=== PATIENT | female | born 1935 | race Caucasian/White ===

== ENCOUNTER 2020-03-19 12:24 | Emergency (ER) | payer MEDICARE ==
[~2020-03-19] VITALS: Ht 160 cm; Wt 63.5 kg
--- NOTE | 2020-03-19 13:08 | Emergency Department Note ---
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 was doing well prior to this Historian: Patient Arrival Mode: Car History limited by: condition of the patient (normal) Wool Carder Required: No Onset (how long ago): hour(s) (12) Location: see above Quality: sharp Radiation: Reports non-radiation Severity: moderate Onset quality: sudden Duration (how long): hour(s) (12) Timing of current episode: constant Progression: unchanged Chronicity: new Context: Reports trauma/injury; Denies recent illness, Denies recent surgery, Denies recent immobilization, Denies recent travel, Denies new medications, Denies hx of DVT/PE, Denies non- compliance w/ medications Relieving factors: none Exacerbating factors: movement Associated symptoms: Reports denies other symptoms Treatments prior to arrival: none Past Medical/Family History Physician Review I have reviewed the patient's past medical and family history. Any updates have been documented here. Past Medical History Recent Fever: No Clinical Suspicion of Infectio: No New/Unexplained Change in Ment: No Past Medical History: None Past Surgical History: None Social History Smoking Cessation: Never Smoker Counseling Performed: No Any Illegal Drug Use: No TB Exposure/Symptoms: No Physically hurt or threatened: No Family History Family history of heart diseas: No Other Any Pre-Existing Lines (PICC,: No Is patient up to date on immun: No Review of Systems Review of Systems Constitutional: Reports no symptoms EENTM: Reports no symptoms Cardiovascular: Reports no symptoms Respiratory: Reports no symptoms Gastrointestinal: Reports no symptoms Genitourinary: Reports no symptoms Musculoskeletal: Reports as per HPI Integumentary: Reports no symptoms Neurological: Reports as per HPI Psychological: Reports no symptoms Endocrine: Reports no symptoms Hematological/Lymphatic: Reports no symptoms Review of other systems: All other systems negative Physical Exam Related Data Allergies: Coded Allergies: erythromycin base (Verified Allergy, Unknown, 03/19/20) latex (Verified Allergy, Unknown, 03/19/20) Vital signs reviewed: Yes Physical Exam CONSTITUTIONAL Constitutional: Present well-developed, Present well-nourished HENT HENT: Present normocephalic, Present oropharynx clear/moist, Present nose normal, Present other (rgt head tenderness/eccymosis) HENT L/R: Present left ext ear normal, Present right ext ear normal EYES Eyes: Reports PERRL, Reports conjunctivae normal NECK Neck: Present ROM normal, Present supple PULMONARY Pulmonary: Present effort normal, Present breath sounds normal CARDIOVASCULAR Cardiovascular: Present regular rhythm, Present heart sounds normal, Present capillary refill normal, Present normal rate GASTROINTESTINAL Abdominal: Present soft, Present nontender, Present bowel sounds normal GENITOURINARY Genitourinary: Present exam deferred SKIN Skin: Present warm, Present dry MUSCULOSKELETAL Musculoskeletal: Present ROM normal, Present tenderness (left knee/ mild c spine tenderness) NEUROLOGICAL Neurological: Present alert, Present oriented x 3, Present no gross motor or sensory deficits PSYCHOLOGICAL Psychological: Present mood/affect normal, Present judgement normal Results Imaging Imaging results reviewed: Yes Impressions [place] [address] Patient Name: KIANNA ARCE MR #: [id number] : 1935 Age/Sex: 84/F Req #: [id number] Adm Physician: Ordered by: ALINA CLEMENS Report #: [id number] Location: [facility] Room/Bed: Procedure: [id number] HOPD/CT BRAIN WO-HOPD Exam Date: 03/19/20 Exam Time: 1356 REPORT STATUS: Signed CT BRAIN WO-HOPD HISTORY: Fall COMPARISON: None. Technique: Noncontrast axial scans were obtained from skull base to the vertex. Coronal and sagittal reconstructions obtained from the axial data. One or more of the following dose reduction techniques were used: Automated exposure control, adjustment of the mA and/or kV according to patient size, and/or utilization of iterative reconstruction technique. DISCUSSION: Scalp/Skull: Small right frontal scalp hematoma. No calvarial fracture. Brain sulci: Mildly prominent. Ventricles: Compensatory dilatation. Extra-axial spaces: No masses or fluid collections. Carotid siphon calcifications are present. Parenchyma: Moderate bilateral deep white matter hypodensity is likely chronic microvascular ischemic change. Otherwise, no masses, hemorrhage, or large vascular territory acute infarct. Dural sinuses: No abnormal densities. Sellar/Suprasellar region: Intact. Skull base: Intact. Incidental findings: Bilateral ocular lens replacement. IMPRESSION: 1. No acute intracranial abnormalities. 2. Moderate supratentorial chronic microvascular ischemic change. Generalized cerebral volume loss. Signed by: Dr. Osmany Hood M.D. on 03/19/2020 1:53 PM Dictated By: OSMANY HOOD MD 135 Transcribed By: MEHDI on 03/19/20 1353 COPY TO: ALINA CLEMENS~ [place] [address] Patient Name: KIANNA ARCE MR #: [id number] : 1935 Age/Sex: 84/F Req #: [id number] Adm Physician: Ordered by: ALINA CLEMENS Report #: [id number] Location: [facility] Room/Bed: Procedure: [id number] HOPD/CT C-SPINE W/O - HOPD Exam Date: 03/19/20 Exam Time: 1356 REPORT STATUS: Signed CT C-SPINE W/O - HOPD HISTORY: Fall COMPARISON: None. TECHNIQUE: CT of the cervical spine without contrast. Sagittal and coronal reformations were created. One or more of the following dose reduction techniques were used: Automated exposure control, adjustment of the mA and/or kV according to patient size, and/or utilization of iterative reconstruction technique. FINDINGS: Cervical lordosis is straightened. There is no significant scoliosis. Mild bone demineralization limits evaluation. No definite acute fracture or compression deformity is seen. The craniocervical junction is intact. No gross spinal canal masses are seen. The paravertebral and paraspinal soft tissues are unremarkable. Degenerative changes: Multilevel advanced spondylosis and bilateral facet arthrosis are present. There is associated minimal grade 1 anterolisthesis of C3 on C4, C4 on C5, and C7 on T1. Multilevel bilateral moderate to severe foraminal stenoses due to uncovertebral and facet arthrosis are present. There is at least mild canal stenosis from C4-C5 to C6-C7 due to posterior disc osteophyte complexes. Incidental findings: The left thyroid lobe is either atrophic or absent. Mild to moderate bilateral carotid bulb calcified plaque is present. IMPRESSION: 1. No acute osseous abnormalities. 2. Degenerative changes as described above. Signed by: Dr. Osmany Hood M.D. on 03/19/2020 2:23 PM Dictated By: OSMANY HOOD MD 22 Transcribed By: MEHDI on 03/19/20 142 COPY TO: ALINA CLEMENS~ [place] [address] Patient Name: KIANNA ARCE MR #: [id number] : 1935 Age/Sex: 84/F Req #: [id number] Adm Physician: Ordered by: ALINA CLEMENS Report #: [id number] Location: [facility] Room/Bed: Procedure: [id number] HOPD/KNEE 3VW LT - HOPD Exam Date: 03/19/20 Exam Time: 1400 REPORT STATUS: Signed Radiographs of the left knee - 3 views HISTORY: Pain COMPARISON: None available. FINDINGS: Bones: No acute displaced fracture. Osseous alignment is within normal limits. Joints: Moderate tricompartmental degenerative arthrosis. No osseous erosion. Small bone spur at the superior patella. Soft tissues: Soft tissue swelling. IMPRESSION: Moderate tricompartmental degenerative arthrosis. No osseous erosion. Soft tissue swelling. Signed by: Dr. Truong Cortes M.D. on 03/19/2020 2:11 PM Dictated By: TRUONG CORTES MD, MD 10 Transcribed By: MEHDI on 03/19/201410 COPY TO: ALINA CLEMENS~ Assessment & Plan Medical Decision Making MDM see below Assessment & Plan Final Impression: (1) Multiple contusions (2) Arthritis of left knee Depart Disposition: HOME, SELF-prison Meds Active Scripts Ibuprofen (IBUPROFEN) 600 Mg Tablet, 600 MG PO Q6H PRN for MODERATE PAIN (4-6), #30 TAB Prov:ALINA CLEMENS 03/19/20 ALINA CLEMENS Mar 19, 2020 13:08
--- NOTE | 2020-03-19 13:56 | Diagnostic Imaging Report ---
CT BRAIN [facility] HISTORY: Fall COMPARISON: None. Technique: Noncontrast axial scans were obtained from skull base to the vertex. Coronal and sagittal reconstructions obtained from the axial data. One or more of the following dose reduction techniques were used: Automated exposure control, adjustment of the mA and/or kV according to patient size, and/or utilization of iterative reconstruction technique. DISCUSSION: Scalp/Skull: Small right frontal scalp hematoma. No calvarial fracture. Brain sulci: Mildly prominent. Ventricles: Compensatory dilatation. Extra-axial spaces: No masses or fluid collections. Carotid siphon calcifications are present. Parenchyma: Moderate bilateral deep white matter hypodensity is likely chronic microvascular ischemic change. Otherwise, no masses, hemorrhage, or large vascular territory acute infarct. Dural sinuses: No abnormal densities. Sellar/Suprasellar region: Intact. Skull base: Intact. Incidental findings: Bilateral ocular lens replacement. IMPRESSION: 1. No acute intracranial abnormalities. 2. Moderate supratentorial chronic microvascular ischemic change. Generalized cerebral volume loss. Signed by: Dr. Osmany Hood M.D. on 03/19/2020 1:53 PM
--- OUTSIDE RECORDS SUMMARY | 2020-03-19 14:10 | XMS REPORT | Clinical Summary ---
Author Author YANE [facility] Organization [facility] Address Unknown Phone Unavailable Care Team Providers Care Tax Accounting Assistant Name Role Phone Agapito Nielson MD PCP Allergies Comments Active Allergy Reactions Severity Noted Date Black Pepper Rash Low 12/06/2012 Carrot Rash Low 12/06/2012 Cefprozil Rash Low 01/28/2013 headache Codeine Nausea And Medium 12/06/2012 Vomiting, Other (See Comments) Erythromycin Rash Low 12/06/2012 Tape Adherent Rash Low 12/06/2012 Never had but contraindicated for migraines Tramadol Other (See Low 12/06/2012 Comments) Medications End Date Status Medication Sig Dispensed Refills Start Date Active metoprolol (LOPRESSOR) Take 100 mg 0 100 MG tablet by mouth 2 (two) times daily. Active ZOLMitriptan (ZOMIG) 5 MG Take 5 mg by 0 tablet mouth as needed. Active multivitamin with Take 1 tablet 0 minerals tablet by mouth daily. Active ibuprofen (ADVIL,MOTRIN) Take 200 mg 0 200 MG tablet by mouth every 6 (six) hours as needed. Active HYDROcodone-acetaminophen Take 1 tablet 0 (NORCO 7.5-325) 7.5-325 by mouth mg per tablet every 6 (six) hours as needed. Active erenumab-aooe (AIMOVIG Inject 0 AUTOINJECTOR SUBQ) subcutaneousl y. Active aspirin/caffeine (ANACIN Take by mouth 0 ORAL) daily . Active donepezil (ARICEPT) 10 MG Take 20 mg by 0 tablet mouth nightly. Active venlafaxine (EFFEXOR-XR) Take 150 mg 0 150 MG 24 hr capsule by mouth daily. Active albuterol (ACCUNEB) 1.25 Take 1 ampule 0 mg/3 mL nebulizer by solution nebulization every 6 (six) hours as needed for Wheezing. Active benzonatate (TESSALON) Take 200 mg 0 100 MG capsule by mouth 3 (three) times daily as needed for Cough. Active fenofibrate (TRICOR) 48 Take 48 mg by 0 MG tablet mouth daily. Active amLODIPine (NORVASC) 2.5 Take 2.5 mg 0 MG tablet by mouth daily. Active sucralfate (CARAFATE) 1 Take 1 g by 0 gram tablet mouth 2 (two) times daily . Active omeprazole (PRILOSEC) 40 Take 40 mg by 0 MG capsule mouth daily. Active rosuvastatin (CRESTOR) 10 Take 10 mg by 0 MG tablet mouth daily. Active levothyroxine (SYNTHROID, Take 25 mcg 0 LEVOTHROID) 25 MCG tablet by mouth Every morning on an empty stomach. Active linagliptin (TRADJENTA Take by 0 ORAL) mouth. Active docusate sodium (COLACE) Take 100 mg 0 100 MG capsule by mouth 2 (two) times daily. Active mirabegron (MYRBETRIQ) 50 Take by mouth 0 mg Tb24 ER tablet daily. Active cholecalciferol (VITAMIN Take 1,000 0 D3) 1,000 unit (25 mcg) Units by tablet mouth daily. Active Missing or Non-Formulary 0 Medication 04/07/2019 acetaminophen-codeine Take 1 tablet 15 tablet 0 (TYLENOL-CODEINE #3) by mouth 9 300-30 mg per tablet every 6 (six) hours as needed for Pain for up to 10 days. Max Daily Amount: 4 tablets 04/23/2019 acetaminophen-codeine Take 1 tablet 30 tablet 0 (TYLENOL-CODEINE #3) by mouth 9 300-30 mg per tablet every 4 (four) hours as needed for Pain for up to 10 days. Max Daily Amount: 6 tablets Active Problems Problem Noted Date History of right breast cancer 04/13/2019 Breast cancer 03/28/2019 Right arm pain 01/19/2013 Rotator cuff tear, right 12/08/2012 Encounters Care Team Description Date Type Specialty Nida Galindo MD LUMPECTOMY 04/13/2019 Surgery Kobi Martinez MD 04/13/2019 Anesthesia Event Nida Galindo MD 04/13/2019 Hospital Encounter Nida Galindo MD 04/10/2019 Hospital Pre-Admission Testi ng Encounter Simon Beata MariaJAMES 03/28/2019 Anesthesia Event Nida Galindo MD LUMPECTOMY 03/28/2019 Surgery Nida Galindo MD 03/28/2019 Hospital Encounter Nida Galindo MD 03/24/2019 Hospital Pre-Admission Testi ng Encounter after 03/19/2019 Family History Medical History Relation Name Comments Cancer Other Coronary artery disease Other Breast cancer Other Migraines Other Relation Name Status Comments Other Other Other Other Social History Date Tobacco Use Types Packs/Day Years Used Never Smoker Smokeless Tobacco: Never Used Alcohol Use Drinks/Week oz/Week Comments No Sex Assigned at Date Recorded Not on file Industry Job Start Date Occupation Not on file Not on file Not on file Travel End Travel History Travel Start No recent travel history available. Last Filed Vital Signs Time Taken Vital Sign Reading 04/13/2019 1:03 PM CDT Blood Pressure 133/66 04/13/2019 1:03 PM CDT Pulse 80 04/13/2019 1:03 PM CDT Temperature 36.6 C (97.8 F) 04/13/2019 1:03 PM CDT Respiratory Rate 16 04/13/2019 1:03 PM CDT Oxygen Saturation 98% - Inhaled Oxygen - Concentration 04/13/2019 9:00 AM CDT Weight 64.2 kg (141 lb 8.6 oz) 04/13/2019 9:00 AM CDT Height 160 cm (5' 3") 04/13/2019 9:00 AM CDT Body Mass Index 25.07 Plan of Treatment Health Maintenance Due Date Last Done Comments MEDICARE ANNUAL WELLNESS 2002 (YEAR 2 or FIRST YEAR if no IPPE) PNEUMOCOCCAL 65+ 03/24/2019 03/24/2018 LOW/MEDIUM RISK (2 of 2 - PPSV23) INFLUENZA VACCINE (#1) 2020 03/24/2018, Implants Device Identifier Shelf Expiration Date Model / Serial / L ot Implanted Type Area Manufactur er 12/02/2014 [id number] / / [id number] Jasper,[employer] Corkscrew Ft Jasper/Art ARTHR EX 5.5x15mm W/3 #2 Fibewire - [id number] hroscopy Implanted: Qty: 2 on 12/13/2012 by Frank Hunt MD 12/01/2014 [id number] / / [id number] Jasper,[employer]ocom[employer] Swivelock C Jasper/Art Right: Shoulde r ARTHREX 4.75x19.1mm W/Closed Eyelet - hroscopy [id number] Implanted: Qty: 2 on 12/13/2012 by Frank Hunt MD Procedures Comments Procedure Name Priority Date/Time Associated Diag nosis RHYTHM STRIP - SCAN 04/14/2019 2:41 PM CDT POCT-GLUCOSE METER Routine 04/13/2019 12:11 PM CDT TISSUE EXAM AP Routine 04/13/2019 11:00 AM CDT LUMPECTOMY 04/13/2019 Malignant neoplasm of 10:30 AM CDT right female breast, unspecified estrogen receptor status, unspecified site of breast (HCC) Case Notes 60 MINS PER KALENE PLATELET COUNT Routine 04/10/2019 3:44 PM CDT INTRAOPERATIVE PATH 03/31/2019 REPORT - SCAN 2:35 PM CDT TISSUE EXAM AP Routine 03/28/2019 11:17 AM CDT NM SENTINEL NODE STUDY Routine 03/28/2019 (INJECTION ONLY) 10:10 AM CDT BIOPSY/EXCISION,SENTINEL 03/28/2019 Malignant ne oplasm of LYMPH NODE 10:00 AM CDT right female breast , unspecified estrogen receptor status, unspecified site of breast (HCC) Case Notes 2 HRS PER KALENE Special Needs (NEEDLE LOC SCHEDULED 03/28/19 BY [facility] [employer] [facility] FOR 7:30 )(CNWE) LUMPECTOMY 03/28/2019 Malignant neoplasm of 10:00 AM CDT right female breast, unspecified estrogen receptor status, unspecified site of breast (HCC) Case Notes 2 HRS PER KALENE Special Needs (NEEDLE LOC SCHEDULED 03/28/19 BY [facility] FOR 7:30 )(CNWE) POCT-GLUCOSE METER Routine 03/28/2019 9:07 AM CDT US PATHOLOGY LOCALIZATION Routine 03/28/2019 RIGHT BREAST 8:49 AM CDT HEMOGLOBIN Routine 03/24/2019 2:01 PM CDT BUN AND CREATININE Routine 03/24/2019 W/RATIO 2:01 PM CDT ELECTROLYTE PANEL Routine 03/24/2019 2:01 PM CDT GLUCOSE Routine 03/24/2019 2:01 PM CDT after 03/19/2019 Results * RHYTHM STRIP - SCAN (04/14/2019 2:41 PM CDT) Narrative Performed At This result has an attachment that is n ot available. * POC-Glucose meter (04/13/2019 12:11 PM CDT) Only the most recent of 2 results within the time period is included. POC-Glucose Meter 141 (H)Comment: TESTED AT 70 - 110 mg/dL C [facility] [address] [facility] [id number] Specimen Blood Performing Organization Address City/State/Zipcode Ph one Number [address] [facility]ENTER * Tissue Exam (04/13/2019 11:00 AM CDT) Only the most recent of 2 results within the time period is included. Case Report Surgical Pathology [facility] TH Report [facility] Case: [id number] Authorizing Provider:Nida Galindo MD Collected: 04/13/2019 1100 Ordering Location: [facility] PERIOPERATIVE Received: 04/13/2019 1117 SERVICES Pathologist: Sissy Fuchs MD Specimens: A) - Soft Tissue, Other, right breast skin over lumpectomy bed stitch stanley superficial margin B) - Soft Tissue, Other, right breast lateral margin stitch stanley true margin DIAGNOSIS A. SKIN, RIGHT BREAST, [facility] EXCISION [facility] - SKIN WITH REACTIVE CHANGES - NEGATIVE FOR CARCINOMA B. BREAST, RIGHT NEW LATERAL MARGIN, EXCISION - FIBROFATTY TISSUE WITH SURGICAL SITE CHANGES - NEGATIVE FOR CARCINOMA Signing Pathologist Direct Phone Line: [phone] CPT Code(s) A. 86794 X 1 [facility] [place] H B. [address] X 1 [facility] CLINICAL HISTORY Malignant neoplasm of the [facility] right female breast [facility] SPECIMEN SOURCE A. Soft tissue, right breast [facility] skin over lumpectomy bed [facility] stitch stanley superficial margin; B. Soft tissue, right breast lateral margin stitch stanley true margin GROSS DESCRIPTION The specimen is received in [facility] two parts each labeled with [facility] the patient's name, Giselle Schmitt, accession number [id number]. Part A additionally labeled "right breast skin over lumpectomy bed stitch stanley superficial margin" consists of an ellipse of skin measuring 3 cm in length and 0.2 cm in diameter and depth is also 0.2 cm. The resection margin is inked blue and the entire specimen is submitted in one cassette labeled A1. Part B additionally labeled "right breast lateral margin stitch stanley true margin" consists of a fibroadipose tissue measuring 3 x 2 x 1 cm. Stitch stanley area inked blue and opposite to stitch lexie is inked black. The specimen is serially sectioned and entirely submitted in B1-B3. SS/pl MICROSCOPIC DESCRIPTION A-B. Performed. [facility] Professional component [facility] was performed at Center, Department of [facility] TER Pathology, [address] [place] [address], [place] [address], Specimen Tissue Tissue - Soft tissue (navigational concept) Performing Organization Address City/[facility] Ph one Number [address] [facility] * Platelet count (04/10/2019 3:44 PM CDT) Platelets 336 150 - 450 K/CU MM [facility] Specimen Blood Performing Organization Address [facility] Ph one Number [address] [facility] * INTRAOPERATIVE PATH REPORT - SCAN (03/31/2019 2:35 PM CDT) Narrative Performed At This result has an attachment that is n ot available. * NM sentinel node study (injection only) (03/28/2019 10:10 AM CDT) Specimen Narrative Performed At FINAL REPORT [employer] PROCEDURE: SENTINEL NODE LOCALI ZATION - NON IMAGING INDICATION: Right breast ca ncer PROTOCOL: A total of 1.2 mC i of Tc-99m tilmanocept was injected in the right breast by the nuclear medi cine technologist.One aliquot was injected subcutaneously in the subareolar area, and one aliquot was injected intradermally at t he 9 o'clock position. IMPRESSION: Radiopharmaceutical injection for intraoperative sentinel node localization. Signed: Joon Macias MD Report Verified Date/Time: 9 10:44:51 Reading Location: [address] Reading Room Procedure Note Interface, External Ris In - 03/28/2019 10:47 AM CDT FINAL REPORT PROCEDURE: SENTINEL NODE LOCALIZATION - NON IMAGING INDICATION: Right breast cancer PROTOCOL: A total of 1.2 mCi of Tc-99m tilmanocept was injected in the right breast by the nuclear process engineer. One aliquot was injected subcutaneously in the subareolar area, and one aliquot was injected intradermally at the 9 o'clock position. IMPRESSION: Radiopharmaceutical injection for intraoperative sentinel node localization. Signed: Joon Macias MD Report Verified Date/Time: 03/28/2019 10:44:51 Reading Location: [address] Med Reading Room Performing Organization Address City/State/Zipcode Ph one Number [email or web address] RIS * US pathology localization right breast (03/28/2019 8:49 AM CDT) Specimen Narrative Performed At [email or web address] RIS #[id number] - MM, U/S, BREAST, PATHOLOGY, LOCAL, RIGHT WIRE LOCALIZATION RIGHT BREAST WITH POS T DIGITAL MAMMOGRAPHIC IMAGIN03/28/2019 PATIENT CONSENT: The procedure, risks a nd benefits, alternatives were discussed with the patient. Informed co nsent was obtained. A time-out was performed. Comparison is made to the mammogram boyd ed 02/24/2019 and ultrasound dated 03/02/2019. A wire localization was performed for t he mass located in the right breast at 9 o'clock posterior depth. This was described on the previous mammography and ultrasound rep orts.The skin was prepped in the usual manner.The localization w as approached from the medial aspect.A wire was inserted into the targeted area.Post placement digital mammographic imaging demonstrat es the tip traverses the mass. IMPRESSION: WIRE LOCALIZATION Wire localization for the mass in the r ight breast at 9 o'clock posterior depth was successful with no apparent post procedure complications.Waiting for pathology results.A final report will be issued when these become available. The procedure was reviewed by a staff namita zuniga. Ayse gagnon M.D. [facility]/:03/28/2019 08:59:09 Director Database: Mini joseph Active Directory Engineer, [facility] [address] Procedure Note Interface, External Ris In - 03/28/2019 2:44 PM CDT #[id number] - MM, U/S, BREAST, PATHOLOGY, LOCAL, RIGHT WIRE LOCALIZATION RIGHT BREAST WITH POST DIGITAL MAMMOGRAPHIC IMAGIN03/28/2019 PATIENT CONSENT: The procedure, risks and benefits, alternatives were discussed with the patient. Informed consent was obtained. A time-out was performed. Comparison is made to the mammogram dated 02/24/2019 and ultrasound dated 03/02/2019. A wire localization was performed for the mass located in the right breast at 9 o'clock posterior depth. This was described on the previous mammography and ultrasound reports. The skin was prepped in the usual manner. The localization was approached from the medial aspect. A wire was inserted into the targeted area. Post placement digital mammographic imaging demonstrates the tip traverses the mass. IMPRESSION: WIRE LOCALIZATION Wire localization for the mass in the right breast at 9 o'clock posterior depth was successful with no apparent post procedure complications. Waiting for pathology results. A final report will be issued when these become available. The procedure was reviewed by a staff physician. Ayse Stafofrd M.D. [facility]/:03/28/2019 08:59:09 Director Database: Mini Batista Active Directory Engineer, [facility] [id number] Performing Organization Address [facility] one Number [employer] RIS * BUN and Creatinine (03/24/2019 2:01 PM CDT) BUN 27 (H) 7 - 21 mg/dL [facility] Creatinine 1.68 (H) 0.57 - 1.25 mg/dL [facility] EGFR 29Comment: ESTIMATED GFR IS mL/min/1.[address] [facility] NOT ACCURATE CREATININE [facility] CLEARANCE IN PREDICTING GLOMERULAR FILTRATION RATE. ESTIMATED GFR IS NOT APPLICABLE FOR DIALYSIS PATIENTS. Specimen Blood Performing Organization Address [facility] one Number [address] [facility] * Hemoglobin (03/24/2019 2:01 PM CDT) Hemoglobin 14.7 11.2 - 15.7 GM/DL [facility] Specimen Blood Performing Organization Address [facility] one Number [address] [facility] * Glucose (03/24/2019 2:01 PM CDT) Glucose 154 (H) 70 - 105 mg/dL [facility] Specimen Blood Performing Organization Address [facility] one Number [address] [facility] * Electrolytes (03/24/2019 2:01 PM CDT) Sodium 140 136 - 145 meq/L [facility] Potassium 4.5 3.5 - 5.1 meq/L [facility] Chloride 103 98 - 107 meq/L [facility] CO2 25 22 - 29 meq/L [facility] Specimen Blood Performing Organization Address City/State/Zipcode Ph one Number [facility] [address] [place], [place] [address] [facility] after 03/19/2019 Insurance Payer Benefit Subscriber ID Type Phone Address Plan / Group MEDICARE MEDICARE A xxxxxxxxxxx Medicare B MCR SUPPLEMENT/INDIVIDUAL AARP/UNITE xxxxxxxxxxx Medi gap D HEALTHCARE Advance Directives Patient has advance care planning documents, and code status on file. For more i nformation, please contact: [address] [phone] Date Inactivated Comments Code Status Date Activated 04/13/2019 4:30 PM Full Code 04/13/2019 8:36 AM This code status was determined by: Patient 03/28/2019 4:03 PM Full Code 03/28/2019 8:59 AM This code status was determined by: Patient 02/14/2013 4:38 PM All possible means of suppor t, including: cardiac massage, mechanical ventilation, and defibrillation will be used to support life. Code ONE 02/14/2013 12:03 PM 01/19/2013 2:23 PM All possible means of suppor t, including: cardiac massage, mechanical ventilation, and defibrillation will be used to support life. Code ONE 01/19/2013 12:33 AM 12/14/2012 5:38 PM All possible means of suppor t, including: cardiac massage, mechanical ventilation, and defibrillation will be used to support life. Code ONE 12/13/2012 11:11 AM
--- OUTSIDE RECORDS SUMMARY | 2020-03-19 14:10 | XMS REPORT | Clinical Summary ---
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) PVR volume 0ml Specimen Urine after 03/19/2019 Insurance Type Payer Benefit Subscriber ID Effective Phone Address Plan / Dates Group Medicare MEDICARE MEDICARE xxxxxxxxxxx [id number] [place], PART A AND resent [place] B Commercial AARP AARP xxxxxxxxxxx [id number] SUPPLEMENT resent Advance Directives For more information, please contact: [phone] Patient Director Trade Explanation Type Date Recorded Advance Directives, 02/21/2016 11:14 AM Living Will and Medical Power of Guzzler Builder Advance Directives, 12/28/2017 9:00 AM Living Will and Medical Power of Guzzler Builder Power of Guzzler Builder Advance Directives, 03/16/2019 12:00 AM Living Will and Medical Power of Guzzler Builder Date Inactivated Comments Code Status Date Activated 01/15/2017 3:28 PM Full Code 01/13/2017 6:22 PM Code Status decision reached by: Patient 12/16/2015 8:52 PM Full Code 12/11/2015 12:03 AM Code Status decision reached by: Patient
--- OUTSIDE RECORDS SUMMARY | 2020-03-19 14:10 | XMS REPORT | Continuity of Care Document ---
Author Author [employer]ATY[employer]isy CASTILLOCHACEANNETTE Espino [employer] Address Unknown Phone Unavailable Care Team Providers Care Pasta Maker Name Role Phone 8 Securities Information Exchange Unavailable Un available Problems No Data Provided for This Section Medications Medication Details Route Status Patient Instructions Ordering Provider Order Date Source ZOLMitriptan 5 MG Oral Tablet ; Start Date: 01/27/2013; End Date: (Active) Active 01/27/2013 [facility] Metoprolol Tartrate 50 MG Oral Tablet ; Start Date: 01/27/2013 (Active) Active 01/27/2013 [facility] Allergies, Adverse Reactions, Alerts Substance Category Reaction Severity Reaction type Status Date Reported Comments Source Codeine Derivatives drug aller gy drug aller gy Active [facility] Erythromycin Base CPEP drug al lergy drug aller gy Active [facility] Cefprozil SUSR drug allergy drug allergy Active [facility] Tramadol drug allergy drug allergy Active [facility] Immunizations No Data Provided for This Section Results No Data Provided for This Section Pathology Reports No Data Provided for This Section Diagnostic Reports No Data Provided for This Section Consultation Notes No Data Provided for This Section Discharge Summaries No Data Provided for This Section History and Physicals No Data Provided for This Section Vital Signs No Data Provided for This Section Encounters Location Location Details Encounter Type Encounter Number Reason For Visit Attending Provider ADM Date DC Date Status Source AUDIT [id number] 01/29/2013 01/29/2013 [facility] AUDIT [id number] 07/03/2013 07/03/2013 [facility] AUDIT [id number] 10/17/2013 10/17/2013 [facility] Procedures No Data Provided for This Section Assessment and Plan No Data Provided for This Section Plan of Care No Data Provided for This Section Social History Social History Date Source Never A Smoker (Active) Never Drank Alcohol (Active) 10/17/2013 [facility] Family History No Data Provided for This Section Advance Directives Order Name Results Value Date Source Advance Directives Advance Dir ectives No Advance Directives available. 10/17/2013 [facility] Advance Directives Advance Dir ectives No Advance Directives available. 07/03/2013 [facility] Advance Directives Advance Dir ectives No Advance Directives available. 01/29/2013 [facility] Functional Status No Data Provided for This Section
--- OUTSIDE RECORDS SUMMARY | 2020-03-19 14:11 | XMS REPORT | Continuity of Care Document ---
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 13:29:00 Test Item Glucose (test code = 2345-7) 249 mg/dL 65-99 H Fasting reference interval For someone without known diabetes, a glucosevalue >125 mg/dL indicates that they may havediabetes and this should be confirmed with afollow-up test. BUN (test code = 3094-0) 16 mg/dL 7-25 Creatinine (test code = 2160-0) 0.90 mg/dL 0.6-0.88 H For patients >49 years of age, the reference limitfor Creatinine is approximately 13% higher for peopleidentified as -Kyrgyz. EGFR Non-Afr. Kyrgyz (test code = 2775) 59 > OR = 60 mL /min/1.73m2 L EGFR (test code = 02222-0) 69 > OR = 60 mL/min/1.73m2 BUN/creatinine ratio (test code = 3097-3) 18 6- 22 (calc) Sodium (test code = 2951-2) 134 mmol/L 135-146 L Potassium (test code = 2823-3) 3.7 mmol/L 3.5-5.3 Chloride (test code = 2075-0) 97 mmol/L 98-110 L CO2 (test code = 2027-9) 24 mmol/L 20-32 Calcium (test code = 84549-1) 9.7 mg/dL 8.6-10.4 Protein (test code = 2885-2) 7.0 g/dL 6.1-8.1 Albumin, S (test code = 1751-7) 4.3 g/dL 3.6-5.1 Globulin, total (test code = 18209-9) 2.7 1.9- 3.7 g/dL (c alc) Albumin/globulin ratio (test code = 1759-0) 1.6 1.0- 2.5 ( calc) Total bilirubin (test code = 1975-2) 0.6 mg/dL 0.2-1.2 Alkaline phosphatase (test code = 6768-6) 56 U/L 37-153 AST (test code = 1920-8) 24 U/L 10-35 ALT (test code = 1742-6) 23 U/L 6-29 GERARD (test code = GERARD) FASTING:YESFASTING: YES RAC (test code = RAC) Performing Organization Info rmation: Site ID: RGA Name: [facility] Lab Address: [address] [place] [phone] Director: Geovanni Morley Lab Interpretation (test code = 30771-7) [facility] [id number] 13:29:00* Test Item Value Reference Range Interpretation Comments Hemoglobin A1C (test code = 4548-4) 10.4 <5.7 % of total Hg b H For someone without known diabetes, a hemoglobin J6mlfelg of 6.5% or greater indicates that they [...] considerations. Currently, no consensus exists regarding use ofhemoglobin A1c for diagnosis of diabetes for children. GERARD (test code = GERARD) FASTING:YESFASTING: YES RAC (test code = RAC) Performing Organization Info rmation: Site ID: RGA Name: [facility] Lab Address: [address] [place] [phone] Director: Geovanni Morley Lab Interpretation (test code = 83670-4) Abnormal [place] [facility]athyroid gnpijhj1918-03-02 13:29:00* Test Item Value Reference Range Interpretation Comments PTH (test code = 2731-8) 32 pg/mL 14-64 In terpretive Guide Intact PTH Calcium -------Normal Parathyroid Normal NormalHypoparathyroidism Low or Low Normal LowHyp erparathyroidism Primary Normal or High High Secondary High Normal or Low Tertiary High HighNon-Parathyroid Hypercalcemia Low or Low Normal High GERARD (test code = GERARD) FASTING:YESFASTING: YES RAC (test code = RAC) Performing Organization Info rmation: Site ID: IG Name: [facility] Lab Address: [address] [place] [address] Director: Dr. Geovanni Morley [place] MethodistT4, zteh5279-60-22 13:29:00* Test Item Value Reference Range Interpretation Comments T4, free (test code = 3024-7) 1.3 ng/dL 0.8-1.8 GERARD (test code = GERARD) FASTING:YESFASTING: YES RAC (test code = RAC) Performing Organization Info rmation: Site ID: RGA Name: [facility] Lab Address: [address] [place] [phone] Director: Geovanni Morley [place] MethodistThyroid stimulating [id number] 13:29:00* Test Item Value Reference Range Interpretation Comments TSH (test code = 3016-3) 9.26 0.40- 4.50 mIU/L H GERARD (test code = GERARD) FASTING:YESFASTING: YES RAC (test code = RAC) Performing Organization Info rmation: Site ID: RGA Name: [facility] Lab Address: [address] [place] [phone] Director: Geovanni Morley Lab Interpretation (test code = 27429-3) Abnormal [place] MethodistVitamin D 25 hydroxy [id number] 13:29:00* Test Item Value Reference Range Interpretation Comments Vitamin D, 25-hydroxy (test code = 1989-3) 54 ng/mL 30-100 Vitamin D Status 25-OH Vitamin D: Deficiency: <20 ng/mLInsufficiency: 20 - 29 ng/mLOptimal: > or = 30 ng/mL For 25-OH Vitamin D testing on patients on D2-supplementation and patients for whom quantitation of D2 and D3 fractions is required, the QuestAssureD(TM)25-OH VIT D, (D2,D3), LC/MS/MS is recommended: order code 92683 (patients >2yrs).See Note 1 Note 1 For additional information, please refer to http://education.Discourse/faq/MOK366 (This link is being provided for informational/educational purposes only.) GERARD (test code = GERARD) FASTING:YESFASTING: YES RAC (test code = RAC) Performing Organization Info rmation: Site ID: RGA Name: [facility] Lab Address: [address] [place] [address] Director: Geovanni Morley [facility] urinalysis cgntzgyy1511-79-97 11:57:00* Test Item Value Reference Range Interpretation Comments Color urine, POC (test code = 8333248) Yellow Clarity urine, POC (test code = 8397886) Clear Glucose urine, POC (test code = 6555080) Negative Negative Bilirubin urine, POC (test code = 8664478) Negative Negative Ketones urine, POC (test code = 6868696) Negative Negative Specific gravity urine, POC (test code = 2019626) 1.010 1.00 5-1.030 Blood urine, POC (test code = 3618550) Negative Negative pH urine, POC (test code = 5811624) 6.0 5.0, 5.5, 6. 0, 6.5, 7.0, 7.5, 8.0, 8.5 Protein urine, POC (test code = 6965040) Negative Negative Urobilinogen urine, POC (test code = 3372530) <2.0 <2.0 Nitrite urine, POC (test code = 9906821) Negative Negative Leukocyte esterase urine, POC (test code = 9064207) Negative Ne gative [facility] BLADDER SCAN/[id number] 10:57:00* Test Item Value Reference Range Interpretation Comments PVR volume (test code = 5766) 0ml [facility] [id number] 15:05:00* Test Item Value Reference Range Interpretation Comments Case Report (test code = 104) Surgical Pathology Repor t Case: [id number] Authorizing Provider: Nida Galindo MD Collected: 04/13/2019 1100 Ordering Location: [facility] Received: 04/13/2019 1117 SERVICES Pathologist: Sissy Fuchs MD Specimens: A) - Soft Tissue, Other, right breast skin over lumpectomy bed stitch stanley superficial margin B) - Soft Tissue, Other, right breast lateral margin stitch stanley true margin DIAGNOSIS (test code = 3220) n0nesCUqDUBqb9emMGJyaKSfWjZdMwYvIxIcMummfFPrCQlmmyXoTIwgv1EiO8CiNtCdQKonjxHqWQWe CamrwdojZWHpFRA0ogOiHNPlIPboQLReLHniEq2ujEIhwMggRwHwAGVsy7zszwNDvcxlkGd2e8ocHYPy QuS5bGJrWZslM2scwmGauAMuRHJqXPi0rU90RGYglA 5fpNBbIYhcjbXhYrC6OQxlIUNwHtW4UCIbgNFbGSTlU9jwWPWtTUuiENTdHRspvOViZHK6pBeoy5W7fX DewIDfdGyePuEsMcAeWCUQm1FxVKs1sOyoI9ItBJKoIlZ3iZXwGAXkDYjoQOEqGUXsbnY1hP05SUbonv T2sRXiz9Gxt68ug764nS9lmNCfEWD4TVGuTUYpsTHr NCAbGTJ6VXVlpXMwR2w3KiLyvCAvR7S6HfOdpSLkH6M0BoSzuEWaP1Y3VePyhAKvMODhpMOvCq1orEOb bEUsiy1ubk17EJO5l9FahUppANR3WBI2LhCgEr0jgKRpKEJzGS4uTxQepKMrCKOqmk42wHgcDGdtruId wP8vBmVbHAWdnPTbWOQrPW6jhTKzFIDtkE1izbrzST OzKrZlbkefECZkgEtfvtXiJm1qaQhdEMP6ARvwP1ifiL6cCnU7NBccS1bhbD2sCQn1KFgyrKX8ZZJdrA 5dHT0ppgzvt8qrWyZsIY5tqkled2ifLpJjVV6oslo5z6hxYqPiNE3ktbpml6ijIfXfHVecXWDcqvmnEF Bal8WkjtzeIRFyi1ApE1ZtwCvzX90kpNxuU67vOSNa eXmprF9kbLhlbT2qNmCqPsEaVJcsoTduzAQzstglDBnwhvHcQEhabfggHABwWJrlC9tvXmBpPCZyrGkr FXxwd9ExEDXkWAYkTuUiCI7fL4lTTzehKwsZSHSiJnFZLTLRUUTDPPSCK2gOJevjQAIcSYJqROElKSWt SN4vH3dVPvPXNQZJKAWBHWNJHLOTSQPEGZ1KDAAajI [file] IHjqCFJ9STJ1Yc73IdF6MSZuqe34 CPT Code(s) (test code = 3357) x7zagFCeMIYftTTuTfNaDXBiUYSzc7jqVDGpiUZtYbUhEfLyQpGuMzkppZCxBDHvZqUbr4djy589lZHs t8blBWQvGzH7iSJtYVYmlOFyV004e7jpp4qivbPjuEO3EPNiTFJ9GEopbtFimxO2HZvklGWfYxV6HMbu ruMtICtzkoAaeeWyRqp0WPQlE484FST8hXzyb9uoYH S3PQScNXZjPkNiIx1fzHKwH154KIWeNSCPQDMxpTn4CSXfpqDgjeYydXZCj686S522z8snVHIlmdAgjP xGipglq4efQ284XIJjyOIrtjGvYsNkCTHydVAviCC7QWKnNF0cxoslZmRsFP6dkoweRuZnQA0qtry7Iq SxKJ6cxzckGpSaGIdkAARyvoywMBGzy3FxuvemHC6k D8Ucp7X6iZ9xtNUsVKBjnAMtOkOhSUOlxd4yyDYaBBmrg2ZxFSU2ftX5tSWltZLfKSNpMA44Pvrzy7Mz PvqoAAR5BMZbkfBxy8Pkp8niXoBezwUjU4cuD5XkXJLeCYPhJGTeGbIkfzJeb8Ebw9RssBLfqOv1i2co JGUjYYKfeVxhl8hqESD8UASnR8N1oXOto2zvTOrqVW PdhIX2nphgZArdOSYlnbD8jgwfLIfuVCXprWK2odwbANtsXSGqDfF8cujyJWbyFJApION5NVtww998AT Q6YScmNsqhPMkjVVBxgkVahjLgkJviSIGwAPAyFOaoMHYvREenBRYeGCEhIkVrpJhbjViorR9hStCbWs BrSBvsWO7uQJGxK4afwNCvGANjJBQbV9xhQzMepM6c uCzoCLbtufRbBUTtTFp5BgH4BEhgACswVZFoCq4mPVscRVPxFJDzANFicg6= CLINICAL HISTORY (test code = 3356) x8cqoTZwJVGueFKuXjBkGHKmXXGvm8boNDLdoHFhBtQsFlNjMdSyNwucdAHpYOTrEjTgm8kem379eWOv u7faDMYfJkY2dCUtBDUwcLZaB591f4rjx9kiebMxwCI2BAQfEMA2TGfoyvPcgtN7FJwcuTMzLsC7YEgk jkUcORkoxeWxkqAoOod0LYNrG952EFF4tRdxw0soHU C9ECAaLBPlQfVjHv8qkCJfV636KJBfYVVVOQGnuCl2SUBbqzVzedMwkMNKt102L492u3elFMYqioVinL yQwqhzl9lmV017TAJpuVYuwrAjYhNwTKLlyTLzaDG1EKTvAQ9jzseeDiLhCK4dbbhaUaTiJK5gwbc8Ek GwVC5jdxjnZgVkRWlrIIOrkgzjVWXrs5LgmirjMG0c L5Skx0A9uB8scBVkRNGwrOSkEuFzLMMody1oqOIgIWxhe5GwVTI8zxF0oCTubAKdAHYgGE66Jeely4Rk ZdaeMYG3SWJviiSxz0Ijm4zkLuCbahMhJ4rlU6BnWQYxOHTmBCYlYbHopeHkt5Iwg4BdiBApiBq8c9pn JCQuJHHnkOwzq8wzXJW8YIEwT6K9vUFml5doDImuZG VbuAT8bpzfLKmbQUSpgkA9dxhmYXdhYLSroQM0pchtVDxrAUBfSnS9ijjxIXlzLITvBAK5PKzfh299PP F7PUftUidcUSexPELcpsVgheNuxLdaMFOiLPUuZKbxGRQfUDjkUZYpNQGhInQjdPugcPwfdR8dVmDxZi TbSComOW3rEIWaY6qayLHuLMHtUKXnL6wxTbGyjE3x tKbxULrznxKhPW6msOwneuRgsWDxSP4emLBkdDFzBgV2wFPmnmjfkVNmXmYqTWvpTPXkNBOntSldVUU3 SPECIMEN SOURCE (test code = 3377) g9aziPZyISWwqASnWmZbFRPmTBKxx7skOITryAFdKaNrIqSeUaNvEgckrZRkUNDaQqIsf5sbz130rTEk e5tqTAEoZxX2oWEuXHPxxHKxZ726TSUmOEdtn1wyt6HsTWPanPKlf5E1OWFLjdcxmNf3nDjtX70ri3V0 UneoY1rxAKWtVZSmY7WzKV9sHVYlQvb2UUZ6NRY2FJ RyEXRqI1UyQE3cSCYaoROfASu9w6qgpDueXQEgZZY7p6hlIWyojnNdXG7yqe4emWv5v7dbrvZsBFLtWP VxmQYBHWFuG0NnoRypQh9auWn4lNhrSsetSMU5Rcu1BS9myr79yqn9zTiwGNPvnfxnDrK2UKbpAIWxbq hkYFh8WQqnXCDjyAseSPncBKGgmbcuRCrcXSDzyXpr ECnlSILpOlwmMLisMCXnTOS7PHuuz194TFP6DJxqz1ncm7nomYVoYpw4GELgZkUkSushGOrbc3Vee2bc CHCxyi2oMPV9fRMyoJdmn5C6kQEbLSFtiDChfkKiEZXxQbV9JLhoGD2qvq17LNAcNRH7lw1vyMTppNqx fmQbwCCdHLymZ1ZfVQIpt972LWFmV2TiASPur8V9dr SiVcFnJADbeFZ8bcR9YWKvNXr2wHXqvtW0dyZkcNNpT3ireV78NiWmrZYeE1DdfO36HaExsMKqA1LwoH 12IhZoaCBhT3ZdiQ81PwMhbNJoFGLwmQPhYb8ggYIpmSTbc2EzfUTlPFlnT47dw728SOJixkHoC5zorM SiyyvigYIlydcsENujygJ1YMUdGHLfZYrgFYGwHKLu UzHdxKLyRgXuVaOzfWszuIlxSBouVoBuVMMzHSanY2edJrMwZwTnEZKCIhTEk0C3XROig8T3MYvbRENa GXvgFWIuHOIoPpJcqMZcDaTlPfKwlHvmeDikZFliUnNiORBfJIyvC3ekZuJtNmKxUNQrqAjloTOappIn j3Qwr5nhlsKcipUsZPc3lBBeW6EuiKmkZxLhBLY7aS LafISqFRWjjbMciOMskcPrL5lbtBPsGRCxzR1wvElimW5bYnQpMsMwVLlpEJ1bJEUxS1yprBLyTUGbXS DeU9bmEcZtcK7kiNguBToajbWrRRclTq9pB40psII7lXWzsOQaNOnrmHUdnxpaLJwaxtBkJXkadenpZB JjMCmdY6jcRmTuDWLgxRsmKFqnp6YgUSJeRYAsTuSi vtakeBUuXqQhGVK6RBcznLGzXZzoeKTzK1qrXRA6eNNxxTUlFHBlktN6jaAhMO9csyqqbozjjOYwhgcz LIulyuRzCYnexejvTBMiIKiuM5fiLiTnUPOlqXquPLpzy3AiTWNaNIFgLbXtaUUvbH== GROSS DESCRIPTION (test code = 3366) n5xfwKUwOBChaPDnWlPdPKRaBLSnf0jrBIHohQBbCtJwFyKiLkEcSmlqiRKjLJEoZiMpw2wei146fVXn q6amLUPiPcZ5vEWlQCEgaPObK312FMAtFLegz6gvr4RcTAOriIIpc4S9BCXTmivqgPd8qVfsI46th9A9 TwlwH6zmGRNoWTApR4UvGN3gLOFnUkl5GKM8QPF1WY FrATZyR2KiNV5gEBGwfNQiXNu1a5okjDmsDZKdCRA0j7vdVVlbdpBbZU4zww3obKu6t4merjGiPIRiRT FwoHQPQSNuC3DnuEotQa6ruCj5yFscTossGLS6Jtv0XY6jky72wue2eYntLXHpndnuJsF0BEzmGMBvlw syRUw4BHooPCWnjWwvUPviSBPhvljtVXftLORsbGte RLedEAKvUahvTLjyNOGkXHL0HFmas918YRJ1KFcdc9whi2ijoAJdKpx7CYPtMfQaRevkXEsud8Sgq2mw MQAcsn1nSKK1kZMkvUcnr6G2wHXqLQLwfBKaslScYCKgKnE9DCzdGD7arv37GIGsAUQ3iy5lkZSjuEki yeDkvDStRYtqD6WdFBPpe802YQRgR7RdQGIco4B4xy SuBdMqJBWzfAV9vaA0EILxBOl7cVIujtX4acQtfHEwX2hzkY56QtKelDDjN6MfvV42YiBmgBEdB8QrhA 43TyJapCKlP0OovL91UgJakJPkSOOqqIVlVs3qpPFdmHEii7DpzMZvSQyfN86er109FJRvisWgR9eejN UdneihrTFmpegxWBfjrkU2EDUiAZPuSAmcIJSpZEEi PoDxvZOsZgAzSwAzeXbmcLohBGwpOsSfZZEwDOxzD3fwPsGjZyXdMJXRhJZat6QlK6mwBL0clJIieuXh FZc4GRFzxX0avPtzRVGvzuVnPTPiJ6brsLTxYUovRHX3yDCgGKGcGEXxSVHxYN45U2SkxqOqNJbuEVD9 IUHEwqExdG9eOOXkVeGoqHllVHZoGFAlzB8dAO92lH LfaoZURPfrSMS1ISCkQBBfbpawMZXcPIHcjPKPORCaUAp9bS0hULotbTWpBYLarPIwUVYyzWibsABevi Myd4Uos2fwjtTypzZqSZm1rRNqH8TbwOpiFyNtGNP4dWFcfWOxTQNelyCygIYkwfKqL1slcNQiIRSblW 3nRGKbdlHyc5ViTE3rSUGoDIFuiRdjy7Ohp9Rre1qu plNqSSBdjBOpekvcYfDgrRFinlVmJZ0dfVxtYL0eVKVkZoLqnOAsysUgkVGgFILyepQcenWaPKWhwLag hECdUUhtyzCtQaOxE17gDPKtAKRjMSCyA2Jox48yvNWnE7ipAVzvJTbid7DwTUVnzKYvCD3pSJCqMEKf swHryeEak4AoZ1npTY2ydMDyl8BapGc4yDIvMJctTD 7jPCDuWCTmRTA1XTUfMCMurPFiLFFyJsPvtFRuFWEqhqWFUMP0PFPaHAByjTMvq55zoRr6TAzjJtFzPW XwBxUpN1i1NQZbGPEliCUgTQTvcdUiJH7saqxlasCpaWz5Y6zhzRMar0XvcFJ4PHJoIGFfdC4rWFOlte Iqx7YoRJ9kCNDvJwwqen6wLYill4FiWADpl8J7UJDi BRIxrJUkeomzJjT2ZWQoiIKcWSUfPxQVhFl3Q9nrcQAid4LwDGTqDMMilgfsXLCriKFaTHYuFUBqvGQt k7e8EKQ1fyPriSi3J6vvfSEgzwHeifQjbcinPFLnnYHhzq9eDZeaUOJkJZXcyJVbDLuzUCKsuwwgcAm1 BTOyE3Eun15mSHYfafBvGE42dDQbzVpzc1EraAz2eNRkNIlaUFVcKIGwBeSvQUQOO8IeVJDebr0= MICROSCOPIC DESCRIPTION (test code = 3371) j9gtuMFkIESwaXCzYaPsNVXnYLQem6axLJPfeQJlYvOfRhQcZyBvAjipiSOhTTAuSkIzi9bwe246gIHk x7geREDvPqG3vRVjDLDowPCjJ451c0kfj0ecdxGsiXZ0RCEyUVB9MBxspuQemcV3WNyyxGIgLuT1GTvb ooTjVOwyarMkslEoIpd2XCTtP625JZL6yAmzt2lhLR M0AAHxXGDpQyPxVl1ykNWyD721KAEkOXXPVUJtvLq0CDQtlaNqjjLwaALZn327L462i2cyECTnruWtzG cJckcnz0snU384CYLviCOlvxVjUhTfLIVlvCEnxKV5QJBrVF6uflvwGfLtCG6ycyydYrLzIH9ghxm7Fx AtTW1zkxkrMuKrBScdJGSvzhysBIErc3McnbusSX6v Z6Ovv5Z8eN3yoKIuYQOcuUHzCyDuLPScsw2ecCAuXPwpz2VvXHW3coG0pFIahSVrVDZzJL32Pdfvc6Pn VlycVYU8UIGsmlKzs9Mcu8urPfNdaoPoI4vsE1MnXHMqLHKnFFDeHhMzoxWrm3Tux4EqcDGxbPt4j6re ZOIdEQGidQpsu3sdYHJ9MJKdR3T5sJSvi3lmQSgePJ DvsBM3utikPEvrNSNcwaV9zxeoSJiyEYOtqDA6ijeaMJbaJGEzTuX8ufnfZByhYKFoQTM9OJavb884YA P0VNloZelfRUwwDIEohzEziuNrpDrwYTUqKVLdBNxdARCmHUdnGQSsYPSbJwIarMtueWaprW0aXlOwOg NpXSwbWW3zDAVnA5ubrYMqSUFpEPGfT5jjRwBbeY 0gzBckAAjghzVlCAPjVh9gFPGdKp4ymPVmZbqoAWB0 Professional component was performed at (test code = 2 779) [facility], Department of Pathology, [address] [place] [address], [place] [address], [facility] CenterTISSUE [id number] 15:05:00Surgical Pathology Report Case: [id number] Authorizing Provider: Nida Galindo MD Collected: 04/13/2019 1100 Ordering Location: [facility] Received: 04/13/2019 1117 SERVICES Pathologist: Sissy Fuchs MD Specimens: A) - Soft Tissue, Other, right breast skin over lumpectomy bed stitch stanley superficial margin B) - Soft Tissue, Other, right breast lateral margin stitch stanley true margin A. SKIN, RIGHT BREAST, EXCISION - SKIN WITH REACTIVE CHANGES - NEGATIVE FOR CARCINOMAB. BREAST, RIGHT NEW LATERAL MARGIN, EXCISION - FIBROFATTY TISSUE WITH SURGICAL SITE CHANGES - NEGATIVE FOR CARCINOMA Signing Pathologist Direct Phone Line: [phone] signed by Sissy Fuchs MD on 04/14/2019 at 3:05 PMA. [id number] X 1B. [id number] X 1M alignant neoplasm of the right female breastA. Soft tissue, right breast skin ov er lumpectomy bed stitch stanley superficial margin; B. Soft tissue, right breast lateral margin stitch stanley true marginThe specimen is received in two parts eac h labeled with the patient's name, Giselle Arce, accession number [id number].Part A additionally labeled "right breast skin over lumpectomy bed stitch mar ks superficial margin" consists of an ellipse of skin measuring 3 cm in length a nd 0.2 cm in diameter and depth is also 0.2 cm. The resection margin is inked bl ue and the entire specimen is submitted in one cassette labeled A1. Part B addit ionally labeled "right breast lateral margin stitch stanley true margin" consists of a fibroadipose tissue measuring 3 x 2 x 1 cm. Stitch stanley area inked blue an d opposite to stitch lexie is inked black. The specimen is serially sectioned and entirely submitted in B1-B3. SS/Candelaria-B. Performed.[facility] Ce sandeep, Department of Pathology, [address] [place] [id number], Tel [phone] 12:15:00* Test Item Value Reference Range Interpretation Comments POC-Glucose Meter (test code = 1538) 141 mg/dL 70-110 H TESTED AT [place] [id number] Lab Interpretation (test code = 81723-1) [facility] [id number] 12:15:00* Test Item Value Reference Range Interpretation Comments POC-GLUCOSE METER (BEAKER) (test code = 1538) 141 mg/dL 70-[address] [facility] [address] [place] [address] Platelet [id number] 16:04:00* Test Item Value Reference Range Interpretation Comments Platelets (test code = 777-3) 336 150- 450 K/CU MM Lab Interpretation (test code = 50480-3) Normal [facility] [id number] 16:04:00* Test Item Value Reference Range Interpretation Comments PLATELET COUNT (BEAKER) (test code = 756) 336 K/CU MM 150-450 TISSUE [id number] 18:31:00Surgical Pathology Report Case: [id number] Authorizing Provider: Nida Galindo MD Collected: 03/28/2019 1117 Ordering Location: [facility] Received: 03/28/2019 1132 SERVICES Pathologist: Sissy Fuchs MD Specimens: A) - Breast, Right, right breast lumpectomy/ short stitch-superior/ long stitch-lateral/ white stitch deep (for margins B) - Breast, Right, right breast inferior margin(stitch stanley true margin) C) - Lymph Node, [place], #1 Right; Hot and Blue; Count 83 D) - Lymph Node, [place], #2 Right; Hot an Blue; Count 51 E) - Breast, Right, Medial margin; Stitch stanley true margin F) - Breast, Right, Deep margin; Stitch stanley true margin G) - Breast, Right, Superior margin; Stitch stanley true margin A. 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 BREAST, RIGHT INFERIOR MARGIN, EXCISION - FIBROFATTY TISSUE, NEGATIVE FOR CARCINOMA - VASCULAR CALCIFICATIONSC. LYMPH NODE, RIGHT SENTINEL #1, HOT AND BLUE, COUNT 83, BIOPSY - ONE LYMPH NODE, NEGATIVE FOR CARCINOMA (0/1)D. LYMPH NODE, RIGHT SENTINEL #2, HOT AND BLUE, COUNT 51, BIOPSY - FOUR SMALL LYMPH NODES, NEGATIVE FOR CARCINOMA (0/4)E. BREAST, RIGHT MEDIAL MARGIN, EXCISION - FIBROFATTY BREAST TISSUE, NEGATIVE FOR CARCINOMAF. BREAST, RIGHT DEEP MARGIN, EXCISION - FIBROFATTY TISSUE, NEGATIVE FOR CARCINOMAG. BREAST, RIGHT SUPERIOR MARGIN, EXCISION - FIBROFATTY BREAST TISSUE, NEGATIVE FOR CARCINOMA Signing Pathologist Direct Phone Line: [phone] signed by Sissy Fuchs MD on 04/04/2019 at 6:31 PMTUMOR STAGING (PATHOLOGY) Anatomic site of tumor : right breastHistologic type : Infiltrating ductal car cinoma, with papillary featuresHistologic grade : G2, moderately differentiatedT umor size : 18mmPrimary tumor (T) : pT1c Lymph node (N) : nQ5Hbimn grouping : IA Margins : Positive (invasive tumor at inked lateral margin)LYMPH NODE SUMMARYTot al # of sentinel lymph nodes : 5Total # of non-sentinel lymph nodes : 0Total # o f positive sentinel lymph nodes : 0INVASIVE CARCINOMA OF THE BREAST (Breast Inv asive - All Specimens)SPECIMEN Procedure: Excision (less than total mastect emperatriz) Specimen Laterality: Right TUMOR Histologic Type: Invasive carci noma of no special type (ductal, not otherwise specified) Histologic Type C omments: with papillary features Glandular (Acinar) / Tubular Differentiat ion: Score 3 Nuclear Pleomorphism: Score 2 Mitotic Rate: Score 2 (4-7 mitoses per mm2) Overall Grade: Grade 2 (scores of 6 or 7) Tumor S ize: Greatest dimension of largest invasive focus in Millimeters (mm): 18 Mil limeters (mm) Tumor Focality: Single focus of invasive carcinoma Ductal Carcinoma In Situ (DCIS): Not identified Lobular Carcinoma In Situ (LCIS): No LCIS in specimen Tumor Extent: Accessory Findings: Lymph ovascular Invasion: Not identified Microcalcifications: Present in in vasive carcinoma Treatment Effect: No known presurgical therapy MARGINS Invasive Carcinoma Margins: Positive for invasive carcinoma Positive M argin(s): Lateral : Unifocal LYMPH NODES Regional Lymph Nodes: Uninvolved by tumor cells Number of Lymph Nodes Examined: 5 Number of [place] Nodes Examined: 5 PATHOLOGIC STAGE CLASSIFICATION (pTNM, AJCC 8th Edition) TNM Descriptors: Not applicable Primary Tumor (Invasive Carci noma) (pT): pT1c Regional Lymph Nodes (pN): Modifier: (sn): Onl y sentinel node(s) evaluated. Category (pN): pN0 A. 18521 x 1; 35535 x 1 ; 51727 x 1; 00800 x 1B. 74114 x 1C. 08274 x 1D. 37296 x 1E. 60982 x 1F. 26989 x 1G. 49471 x 1Pre and postop diagnosis: Malignant neoplasm of the right female b reast, unspecified estrogen receptor status, unspecified site of breast. A. Terrie st, right lumpectomy, short stitch superior, long stitch lateral, white stitch d eep; B. Breast, right tissue, right breast inferior margin (stitch stanley true ma rgin). C. Lymph node, sentinel #1 right, hot and blue count 83. D. Lymph node se ntinel #2 hot and blue count 51. E. Right breast tissue medial margin, stitch ma rks true margin. F. Breast right tissue deep margin, stitch stanley true margin. G . Right breast tissue superior margin, stitch stanley true margin A. The specimen is received fresh for intraoperative gross consultation labeled with the patient 's name, Gwendolyn Arce, medical record number and "right breast tissue". I t consists of a 7 gm of oriented lumpectomy specimen measuring superior to infer ior, 4 cm, medial to lateral, 3.5 and superior to deep, 3 cm. The specimen is in ked and serially sectioned from medial to lateral into five pieces. A well-circu mscribed firm mass is identified at slice 2 and 3 measuring 1.6 x 1.2 x 1.7 cm. The mass is located 0.3 cm from superior, 0.3 cm from posterior, 1.5 cm from inf erior, 1.1 cm from medial and 1 cm from lateral and 1 cm from anterior. The clip is identified as slice 3. Remaining of the tissue contains 95% adipose tissue a nd 5% fibrous tissue. Ink code: superior, blue; inferior red; posterior black an d anterior yellow. Orientation: short superior, long lateral.Cassette code: A1, entire margin margin, perpendicular section and entirely submitted; A2 to A3, sl ice 2, mass containing slice A2. Slice 3, cassette A4 to A6, mass is in cassette A4, slice 4; A7 to A9, entirely submitted slice 5; A9 to A11, lateral margin, p erpendicularly submitted entirely. SS/plB. Received in formalin labeled with t he patient's name, accession number and "breast, right" is a 1 gm irregular port ion of fibrofatty tissue measuring 2 x 1.5 x 0.5 cm with a stitch on one surface designating the true margin. The true margin is inked black, and the opposite s urface is inked orange. The specimen is serially sectioned to reveal 95% adipose tissue and 5% fibrous tissue, and no discrete lesions are identified.The specim en is submitted in its entirety in cassettes B1-B3.C. Received in formalin label ed with the patient's name, accession number and "lymph node, sentinel" is an ir regular portion of fibrofatty tissue measuring 2 x 2 x 0.5 cm. Within the fibrof atty tissue, a single possible lymph node is identified measuring 0.8 cm in grea test dimension. The cut surface of the lymph node displays slightly blue dye-tin ged lymphoid tissue. The lymph node is submitted in its entirety in cassette C1 as one bisected possible node.D. Received in formalin labeled with the patient's name, accession number and "lymph node, sentinel" is an irregular portion of fi brofatty tissue measuring 2.7 x 1.7 x 0.2 cm. Within the fibrofatty tissue, mult iple possible lymph nodes are identified ranging from 0.2 to 0.8 cm in greatest dimension. The largest possible node is slightly blue dye-tinged. The lymph node s are submitted in toto in cassette D1 as three whole possible nodes.E. Received in formalin labeled with the patient's name, accession number and "breast, righ t" is an irregular portion of fibrofatty tissue weighing 1 gm and measuring 2.2 x 1.5 x 0.5 cm with a stitch on one surface designating the true margin. The spe cimen is serially sectioned to reveal 95% adipose tissue and 5% fibrous tissue, and no discrete lesions are identified.Ink code: True margin-black, opposite darryl face-orange.The specimen is submitted in its entirety in cassettes E1-E2.F. Rece ived in formalin labeled with the patient's name, accession number and "breast, right" is a 1.1 gm irregular portion of fibrofatty tissue with a stitch on one s urface designating the true margin.The specimen is serially sectioned to reveal 95% adipose tissue and 5% fibrous tissue, and no discrete lesions are identified .Ink code: True margin-black, opposite surface-orange.The specimen is submitted in its entirety in cassettes F1-F2.G. Received in formalin labeled with the marcie ent's name, accession number and "breast, right" is a 0.9 gm irregular portion o f fibrofatty tissue measuring 1.5 x 1 x 0.2 cm with a stitch on one surface casey gnating the true margin.The specimen is serially sectioned to reveal 95% adipose tissue and 5% fibrous tissue with no discrete lesions are identified.Ink code: True margin-black, opposite surface-orange.The specimen is submitted in its enti rety in cassettes G1-G2. KM/ewBREAST, RIGHT NEEDLE LOCATED LUMPECTOMY: - MASS A ND CLIP X1 SEEN - CLOSEST IS MEDIAL SUPERIOR AND DEEP, APPROXIMATELY [address] Galindo [address] Dr. Fuchs at 11:50 a.m., on 2018. A-G. Performed.The in terpretation of this case included the use of immunohistochemistry or special st ains.IMMUNO STAINS [id number] (A2, A4, A9, A11) - NEGATIVE IN INVASIVEMYOSIN-H EAVY CHAIN (A2, A4, A9, A11) - NEGATIVE IN INVASIVEControl Slides Examined: In- house known positive controls were evaluated along with the test tissue. These control slides run alongside of the patients sample show appropriate staining. I nternal positive and negative controls when available are evaluated Immunohistoc hemistry technical testing was performed at [facility] where it was developed and its performance characteristics we re determined. It has not been cleared or approved by the U.S. Food and Drug Adm inistration. The FDA has determined that such clearance or approval is not neces arlene. The test is used for clinical purposes. It should not be regarded as inves tigational or for research. This laboratory is certified under the Clinical Labo ratory Improvement Amendments of 1988 (CLIA-88) as qualified to perform high com plexity clinical laboratory testing.[facility], Department of Pathology, [address] [place] [address], [place] [address], AWVKSUCY NODE INJECTION, [id number] 10:44:00Reason for exam:->right breast cancerFINAL REPORT PROCEDURE: SENTINEL NODE LOCALIZATION - NON IMAGING INDICATION: Right breast cancer PROTOCOL: A total of 1.2 mCi of Tc-99m tilmanocept was injected in the right breast by the nuclear logging engineer. One aliquot was injected subcutaneously in the subareolar area, and one aliquot was injected intradermally at the 9 o'clock position. IMPRESSION: Radiopharmaceutical injection for intraoperative sentinel node localization. Signed: Roly Macias Verified Date/Time: 03/28/2019 10:44:51 Reading Location: [address] Reading Room sentinel node study (injection only)2019-03-28 10:44:00Interface, External Ris In - 03/28/2019 10:47 AM CDTFINAL REPORT PROCEDURE: SENTINEL NODE LOCALIZATION - NON IMAGING INDICATION: Right breast cancer PROTOCOL: A total of 1.2 mCi of Tc-99m tilmanocept was injected in the right breast by the nuclear logging engineer. One aliquot was injected subcutaneously in the subareolar area, and one aliquot was injected intradermally at the 9 o'clock position. IMPRESSION: Radiopharmaceutical injection for intraoperative sentinel node localization. Signed: Roly Macias Verified Date/Time: 03/28/2019 10:44:51 Reading Location: [address] Reading Room [facility] [id number] 09:09:00* Test Item Value Reference Range Interpretation Comments POC-GLUCOSE METER (Wave - Private Location App) (test code = 1538) 144 mg/dL 70-[address] [facility] [address] [facility] [address] MM, U/S, BREAST, PATHOLOGY, LOCAL, [id number] 08:59:00Reason for exam:-> right breast cancerMRN#: [id number] - MM, U/S, BREAST, PATHOLOGY, LOCAL, RIGHTWIRE LOCALIZATION RIGHT BREAST WITH POST DIGITAL MAMMOGRAPHIC IMAGIN03/28/2019PATIENT CONSENT: The procedure, risks and benefits, alternatives [...] the tip traverses the mass. IMPRESSION: WIRE LOCALIZATIONWire localization for the mass in the right breast at 9 o'clock posterior depth was successful with no apparent post procedure complications. Waiting for pathology results. A final report will be issued when these become available. The procedure was reviewed by a staff physician. Mario Stafford M.D.formerly [facility]/:03/28/2019 08:59:09 Auto Clocks Repairer: [employer], [facility] [address] pathology localization right [id number] 08:59:00Interface, External Ris In - 03/28/2019 2:44 PM CDRN#: [id number] - MM, U/S, BREAST, PATHOLOGY, LOCAL, RIGHTWIRE LOCALIZATION RIGHT BREAST WITH POST DIGITAL MAMMOGRAPHIC IMAGIN03/28/2019PATIENT CONSENT: The procedure, risks and benefits, alternatives were discussed with the patient. Informed consent was obt ained. A time-out was performed. Comparison is made to the mammogram dated and ultrasound dated 03/02/2019. A wire localization was performed for the mass located in the right breast at 9 o'clock posterior depth. This was basilio cribed on the previous mammography and ultrasound reports. The skin was prepped in the usual manner. The localization was approached from the medial aspect. A wire was inserted into the targeted area. Post placement digital mammographic imaging demonstrates the tip traverses the mass. IMPRESSION: WIRE LOCALIZATI ONWire localization for the mass in the right breast at 9 o'clock posterior dept h was successful with no apparent post procedure complications. Waiting for pat hology results. A final report will be issued when these become available. The procedure was reviewed by a staff physician. Mario Stafford M.D.formerly [facility]/:03/28/2019 08:59:09 Auto Clocks Repairer: [employer], [facility] [address] [facility] CenterB[facility] and [id number] 14:41:00* Test Item Value Reference Range Interpretation Comments BUN (test code = 3094-0) 27 mg/dL 7-21 H Creatinine (test code = 2160-0) 1.68 mg/dL 0.57-1.25 H EGFR (test code = 74362-5) 29 mL/min/1.73 sq m ESTIMATED GFR IS NOT ACCURATE CREATININE CLEARANCE IN PREDICTING GLOMERULAR FILTRATION RATE. ESTIMATED GFR IS NOT APPLICABLE FOR DIALYSIS PATIENTS. Lab Interpretation (test code = 19219-8) Abnormal [facility] CenterBUN AND [id number] 14:41:00* Test Item Value Reference Range Interpretation Comments BLOOD UREA NITROGEN (BEAKER) (test code = 354) 27 mg/dL 7-21 H CREATININE (BEAKER) (test code = 358) 1.68 mg/dL 0.57-1.25 H EGFR (BEAKER) (test code = 1092) 29 mL/min/1.73 sq m ESTIMATED GFR IS NOT ACCURATE CREATININE CLEARANCE IN PREDICTING GLOMERULAR FILTRATION RATE. ESTIMATED GFR IS NOT APPLICABLE FOR DIALYSIS PATIENTS. [id number] 14:36:00* Test Item Value Reference Range Interpretation Comments Sodium (test code = 2951-2) 140 meq/L 136-145 Potassium (test code = 2823-3) 4.5 meq/L 3.5-5.1 Chloride (test code = 2075-0) 103 meq/L 98-107 CO2 (test code = 2028-9) 25 meq/L 22-29 Lab Interpretation (test code = 09427-3) Normal [facility] 14:36:00* Test Item Value Reference Range Interpretation Comments Glucose (test code = 2345-7) 154 mg/dL 70-105 H Lab Interpretation (test code = 61866-4) Abnormal [facility] CenterELECTROLYTES2019-09-20 14:36:00* Test Item Value Reference Range Interpretation Comments SODIUM (BEAKER) (test code = 381) 140 meq/L 136-145 POTASSIUM (BEAKER) (test code = 379) 4.5 meq/L 3.5-5.1 CHLORIDE (BEAKER) (test code = 382) 103 meq/L 98-107 CO2 (BEAKER) (test code = 355) 25 meq/L 22-29 [id number] 14:36:00* Test Item Value Reference Range Interpretation Comments GLUCOSE RANDOM (BEAKER) (test code = 652) 154 mg/dL 70-105 H [id number] 14:21:00* Test Item Value Reference Range Interpretation Comments Hemoglobin (test code = 786-4) 14.7 11.2- 15.7 GM/DL Lab Interpretation (test code = 52785-2) Normal [facility] CenterHEMOGLOBIN2019-09-20 14:21:00* Test Item Value Reference Range Interpretation Comments HEMOGLOBIN (BEAKER) (test code = 410) 14.7 GM/DL 11.2-15.7
--- NOTE | 2020-03-19 14:14 | Diagnostic Imaging Report ---
Radiographs of the left knee - 3 views HISTORY: Pain COMPARISON: None available. FINDINGS: Bones: No acute displaced fracture. Osseous alignment is within normal limits. Joints: Moderate tricompartmental degenerative arthrosis. No osseous erosion. Small bone spur at the superior patella. Soft tissues: Soft tissue swelling. IMPRESSION: Moderate tricompartmental degenerative arthrosis. No osseous erosion. Soft tissue swelling. Signed by: Dr. Truong Saavedra M.D. on 03/19/2020 2:11 PM
--- NOTE | 2020-03-19 14:26 | Diagnostic Imaging Report ---
CT C-SPINE W/O - HOPD HISTORY: Fall COMPARISON: None. TECHNIQUE: CT of the cervical spine without contrast. Sagittal and coronal reformations were created. One or more of the following dose reduction techniques were used: Automated exposure control, adjustment of the mA and/or kV according to patient size, and/or utilization of iterative reconstruction technique. FINDINGS: Cervical lordosis is straightened. There is no significant scoliosis. Mild bone demineralization limits evaluation. No definite acute fracture or compression deformity is seen. The craniocervical junction is intact. No gross spinal canal masses are seen. The paravertebral and paraspinal soft tissues are unremarkable. Degenerative changes: Multilevel advanced spondylosis and bilateral facet arthrosis are present. There is associated minimal grade 1 anterolisthesis of C3 on C4, C4 on C5, and C7 on T1. Multilevel bilateral moderate to severe foraminal stenoses due to uncovertebral and facet arthrosis are present. There is at least mild canal stenosis from C4-C5 to C6-C7 due to posterior disc osteophyte complexes. Incidental findings: The left thyroid lobe is either atrophic or absent. Mild to moderate bilateral carotid bulb calcified plaque is present. IMPRESSION: 1. No acute osseous abnormalities. 2. Degenerative changes as described above. Signed by: Dr. Osmany Hood M.D. on 03/19/2020 2:23 PM
[2020-03-19] MEDS ORDERED: IBUPROFEN600 MG PO (14:34)
[2020-03-19] MEDS ORDERED: ACETAMINOPHEN 325 MG TAB PO ONE (14:45)
[2020-03-19] MEDS ORDERED: ACETAMINOPHEN 325 MG TAB ONE (14:49)
== END 2020-03-19 15:39 | disposition home or self-care (01) ==
LOC: FSED 14:08
DX: S00.83XA Contusion of other part of head, initial encounter (principal); R51 Headache; M54.2 Cervicalgia; M25.562 Pain in left knee; W01.0XXA Fall on same level from slipping, tripping and stumbling without subsequent striking against object, initial encounter; M17.12 Unilateral primary osteoarthritis, left knee
CPT/HCPCS: 70450; 72125; 99283